=== PATIENT | female | born 1940 | race Caucasian/White ===

== ENCOUNTER → 2017-03-22 | Outpatient (CLI) | payer MEDICARE, BC ==
[~2017-03-22] MED LIST: ASPIR-TRIN325 MG PO; ASPIRIN PO; CALCIUM 500 + D1 TAB PO; CALCIUM 600 W/V1 TA2 PO; CALCIUM PO; CIPRO250 M1 PO; FISH OIL 1,0001 EAC1 PO; FISH OIL 1,0001 EAC3 PO; FOSAMAX PO; LIPITOR PO; LIPITOR20 MG PO; LIPITOR40 MG PO; LODINE200 M1 PO; MEDROL4 MG/DOSE- PO; NORVASC PO; ORUDIS75 M1 DOB; PROLIA60 MG/1 ML SQ; SYNTHROID PO; SYNTHROID0.05 MG PO; TYLENOL325 M1 PO; VITAMIN D PO; VITAMIN D1000 UNI2 PO
== END | disposition home or self-care (01) ==
LOC: CSSDAY 09:47
DX: M81.0 Age-related osteoporosis without current pathological fracture (principal)
CPT/HCPCS: 36415; 82310; 96372; J0897

== ENCOUNTER → 2017-06-01 | Day surgery (SDC) | payer MEDICARE, BC ==
--- NOTE | ~2017-06-01 | OR ---
Unit #: [id number] #: [id number] Patient: LEILA FIGUEREDO [id number] [address] [place], [place] [address] [id number] O MR#: [id number] NAME: LEILA FIGUEREDO ROOM: Date of Procedure: 06/01/2017 Admission Date: 06/01/2017 Surgeon: Nic Barnes M.D. : 1940 Attending Physician: Nic Barnes M.D. Primary Care Physician: Conchita Heath M.D. OPERATIVE REPORT PROCEDURE PERFORMED Colonoscopy with snare polypectomy. INDICATIONS FOR PROCEDURE The patient with positive Cologuard test, undergoing colonoscopy for evaluation. MEDICATIONS Monitored anesthesia. POSTOPERATIVE FINDINGS 1. Colonoscopy completed to the cecum. Prep was good. 2. Polyp, transverse colon, 4 to 6 mm, snared and sent for histopathology. 3. Polyp, sigmoid colon, 4 to 6 mm, snared and sent for histopathology. 4. Extensive diverticulosis in the sigmoid colon. 5. Internal hemorrhoids. PLAN Follow up on the pathology report. Repeat colonoscopy in 5 years. DESCRIPTION OF PROCEDURE The patient was explained of the procedure, risks, and benefits along with the risks and benefits of anesthesia. She was brought to the endoscopy room. Propofol anesthesia was given. Rectal exam was done, which was normal. Colonoscope was lubricated, passed up the rectum, advanced under direct vision all the way to the cecum. Cecum was identified by ileocecal valve and appendiceal orifice. I then started to pull the scope out carefully looking. Polyp seen as described above. No large polyps or masses were seen. I retroflexed in the rectum, small hemorrhoids seen. Scope was gently pulled out. She tolerated it well. No major complications were seen. Dictated by... Alexandre Gold/maverick TD: 06/01/2017 14:14 JOB #: [id number] Unit #: [id number] #: [id number] Patient: LEILA FIGUEREDO OPERATIVE REPORT Page 1 of 1 X Nic Barnes MD PROCEDURE OPERATIVE NOTE
== END | disposition home or self-care (01) ==
LOC: COPS 11:03
DX: K63.5 Polyp of colon (principal); K57.30 Diverticulosis of large intestine without perforation or abscess without bleeding; K64.8 Other hemorrhoids; I10 Essential (primary) hypertension; E78.5 Hyperlipidemia, unspecified; E03.9 Hypothyroidism, unspecified; F17.210 Nicotine dependence, cigarettes, uncomplicated; Z87.440 Personal history of urinary (tract) infections; Z79.899 Other long term (current) drug therapy; Z90.710 Acquired absence of both cervix and uterus; Z79.82 Long term (current) use of aspirin; Z79.1 Long term (current) use of non-steroidal anti-inflammatories (NSAID)
CPT/HCPCS: 88305